=== PATIENT | female | born 1990 | race African-American/Black ===

== ENCOUNTER 2017-05-11 15:12 | Inpatient (IN) | payer MEDICAID ==
[2017-05-11] VITALS (25 sets, daily range): BP systolic 122–183; BP diastolic 64–123
[~2017-05-11] VITALS: Ht 170.2 cm; Wt 93.0 kg
[2017-05-11] MEDS ORDERED: MAGNESIUM 2 G PREMIX 50 ML IV ONE ×5 (15:15→17:45)
[2017-05-11] MEDS ORDERED: LORAZEPAM 2MG/ML CPJ ONE (15:24)
[2017-05-11] MEDS ORDERED: LABETALOL 5MG/ML SYR 20 MG/4 ML SYRINGE IV ONE ×3 (15:30→17:45)
[2017-05-11] MEDS ORDERED: LORAZEPAM 2MG/ML CPJ IV ONE (15:30)
[2017-05-11] MEDS ORDERED: LABETALOL HCL 20MG/4ML CARPUJECT IV ONE (15:30)
[2017-05-11 15:52] LABS: CHLORIDE 106 mEq/L (98-107)
[2017-05-11 15:56] LABS: INR 0.9; PROTHROMBIN TIME 9.1 sec (9.4-11.6)
[2017-05-11 16:01] LABS: CARBON DIOXIDE 17 mEq/L (21-32)
[2017-05-11 16:09] LABS: BASOPHILS % 0.4 % (0.0-2.0); EOSINOPHILS % 0.2 % (0.0-5.0); HEMATOCRIT. 47.4 % (36.0-48.0); HEMOGLOBIN. 15.8 g/dL (12.0-16.0); LYMPHOCYTES % 43.4 % (20.0-50.0); MEAN CORPUSCULAR VOLUME 92.9 fL (81.0-99.0); MEAN PLATELET VOLUME 11.9 fl (7.4-10.4); MONOCYTES % 7.1 % (2.0-8.0); NEUTROPHILS % 48.9 % (40.0-76.0); PLATELET 194 x1000/uL (130-400); RED CELL DISTRIBUTION WIDTH 14.1 % (11.6-14.6)
[2017-05-11 16:47] LABS: BG CARBOXYHEMOGLOBIN 0.8 % (0.5-1.5); BG DEOXYHEMOGLOBIN 18.5 % (0.0-5.0); BG FRACTION INSPIRED OXYGEN 21; BG HCO3 ACT 20.7 mmol/L (22.0-26.0); BG METHEMOGLOBIN 0.3 % (0.0-1.5); BG OXYGEN SATURATION 81.3 % (92.0-98.5); BG OXYHEMOGLOBIN 80.4 % (94.0-97.0); BG PCO2 37.2 mmHg (35.0-45.0); BG PH 7.364 (7.350-7.450); BG SAMPLE SITE LEFT RADIAL; BG VENT MODE ROOM AIR
[2017-05-11 17:25] LABS: CLARITY URINE CLEAR (CLEAR); COLOR URINE YELLOW (YELLOW); KETONES URINE NEGATIVE (NEGATIVE); LEUKOCYTE ESTERASE URINE NEGATIVE (NEGATIVE); NITRITE URINE NEGATIVE (NEGATIVE); OCCULT BLOOD URINE 2+ (NEGATIVE); PROTEIN URINE 4+ (NEGATIVE); UROBILINOGEN URINE 0.2 E.U./dL (0.2-1.0)
[2017-05-11] MEDS ORDERED: ONDANSETRON HCL 4MG/2ML VIAL IV PRN ×2 (18:30→19:00)
[2017-05-11] MEDS ORDERED: MEPERIDINE HCL/PF 25MG/ML CPJ IV PRN (18:30)
[2017-05-11] MEDS ORDERED: LABETALOL HCL 20MG/4ML CARPUJECT IV PRN (18:30)
[2017-05-11] MEDS ORDERED: MIDAZOLAM HCL 2 MG/2 ML VIAL ONE (18:39)
[2017-05-11] MEDS ORDERED: FENTANYL CITRATE/PF 50MCG/ML 2ML VIAL ONE (18:39)
[2017-05-11] MEDS ORDERED: HYDROMORPHONE HCL/PF 2MG/ML CPJ IM PRN (19:00)
[2017-05-11] MEDS ORDERED: HYDROCODONE/ACETAMINOPHEN 5/325MG TABLET PO PRN (19:00)
[2017-05-11] MEDS ORDERED: RHO(D) IMMUNE GLOBULIN 300 MCG/SYR IM PRN (19:00)
[2017-05-11] MEDS ORDERED: BISACODYL 10MG SUPP PR PRN (19:00)
[2017-05-11] MEDS ORDERED: IBUPROFEN 400MG TABLET PO PRN (19:00)
[2017-05-11] MEDS ORDERED: LORAZEPAM 2MG/ML CPJ IV PRN (19:45)
[2017-05-11] MEDS: LABETALOL 5MG/ML SYR 20 MG/4 ML SYRINGE IV PRN ×3 (19:58→22:41)
[2017-05-11 20:02] LABS: CARBON DIOXIDE 25 mEq/L (21-32); CHLORIDE 105 mEq/L (98-107)
[2017-05-11] MEDS: HYDROMORPHONE HCL/PF 2MG/ML CPJ IV PRN ×3 (20:08→20:46)
[2017-05-11] MEDS ORDERED: PROPOFOL 200MG/20ML VIAL IV ONE (20:09)
[2017-05-11 20:35] LABS: BG BASE EXCESS -7.6 mmol/L (-2.0-2.0); BG DEOXYHEMOGLOBIN 4.6 % (0.0-5.0); BG FRACTION INSPIRED OXYGEN 100; BG METHEMOGLOBIN 0.3 % (0.0-1.5); BG OXYGEN SATURATION 95.3 % (92.0-98.5); BG OXYHEMOGLOBIN 94.1 % (94.0-97.0); BG PCO2 32.6 mmHg (35.0-45.0); BG PH 7.336 (7.350-7.450); BG PO2 90.1 mmHg (75.0-100.0); BG SAMPLE SITE RIGHT RADIAL; BG TIDAL VOLUME(mL) 500 mL; BG TOTAL HEMOGLOBIN 14.6 g/dL (12.0-18.0); BG VENT MODE VENT - A/C; BG VENT RATE 12 set
[2017-05-11] MEDS: DEXT 5%/LR + PITOCIN 20UNITS/L 1,000 ML IV SCH (20:45)
[2017-05-11] MEDS ORDERED: MAGNESIUM 20 G PREMIX (L & D) 500 ML IV SCH (21:00)
[2017-05-11] MEDS ORDERED: PROPOFOL 10MG/ML 100ML 100 ML IV PRN (21:15)
[2017-05-11] MEDS: LABETALOL HCL 200MG TABLET PO SCH (22:00)
[2017-05-12] VITALS (93 sets, daily range): BP systolic 120–180; BP diastolic 62–139
[2017-05-12] MEDS: SODIUM CHLORIDE 0.9% 1,000 ML IV SCH ×4 (00:39→20:14)
[2017-05-12] MEDS: LABETALOL 5MG/ML SYR 20 MG/4 ML SYRINGE IV PRN ×3 (00:39→06:50)
[2017-05-12 03:46] LABS: BG BASE EXCESS -5.9 mmol/L (-2.0-2.0); BG DEOXYHEMOGLOBIN 8.1 % (0.0-5.0); BG FRACTION INSPIRED OXYGEN 50; BG HCO3 ACT 19.6 mmol/L (22.0-26.0); BG METHEMOGLOBIN 0.3 % (0.0-1.5); BG OXYGEN SATURATION 91.9 % (92.0-98.5); BG OXYHEMOGLOBIN 91.6 % (94.0-97.0); BG PCO2 38.8 mmHg (35.0-45.0); BG PH 7.322 (7.350-7.450); BG PO2 67.9 mmHg (75.0-100.0); BG SAMPLE SITE RIGHT RADIAL; BG TOTAL HEMOGLOBIN 14.8 g/dL (12.0-18.0); BG VENT MODE T-TUBE
[2017-05-12] MEDS: DEXT 5%/LR + PITOCIN 20UNITS/L 1,000 ML IV SCH ×2 (04:59→11:24)
[2017-05-12] MEDS: LABETALOL HCL 200MG TABLET PO SCH ×3 (05:00→20:13)
[2017-05-12 05:28] LABS: HEMATOCRIT. 42.5 % (36.0-48.0); HEMOGLOBIN. 14.1 g/dL (12.0-16.0); MEAN CORPUSCULAR HEMOGLOBIN 30.7 pg (28.0-32.0); MEAN CORPUSCULAR VOLUME 92.2 fL (81.0-99.0); MEAN PLATELET VOLUME 11.6 fl (7.4-10.4); PLATELET 172 x1000/uL (130-400); RED CELL DISTRIBUTION WIDTH 13.9 % (11.6-14.6)
[2017-05-12] MEDS ORDERED: FUROSEMIDE 40MG/4ML VIAL IVP NR (08:00)
[2017-05-12] MEDS: HYDRALAZINE 20MG/ML VIAL IV PRN ×2 (08:07→14:05)
[2017-05-12] MEDS: ENALAPRIL 2.5MG/2ML VIAL 2ML IV PRN ×2 (08:52→17:35)
[2017-05-12] MEDS: MORPHINE SULFATE 2 MG/ML CPJ (NOT FOR IM USE) IV PRN ×2 (09:37→16:41)
[2017-05-12 10:51] LABS: PLATELET ESTIMATE NORMAL
[2017-05-12 14:35] LABS: CARBON DIOXIDE 22 mEq/L (21-32); CHLORIDE 103 mEq/L (98-107)
[2017-05-12] MEDS ORDERED: SIMETHICONE 80MG TABLET CHEW PO SCH (23:45)
[2017-05-13] VITALS (84 sets, daily range): BP systolic 113–178; BP diastolic 60–115
[2017-05-13] MEDS: NIFEDIPINE 10MG CAPSULE PO SCH ×4 (00:27→17:54)
[2017-05-13] MEDS: LABETALOL 5MG/ML SYR 20 MG/4 ML SYRINGE IV PRN ×3 (00:28→21:52)
[2017-05-13] MEDS: MORPHINE SULFATE 2 MG/ML CPJ (NOT FOR IM USE) IV PRN (03:00)
[2017-05-13] MEDS: SODIUM CHLORIDE 0.9% 1,000 ML IV SCH ×4 (03:57→23:59)
[2017-05-13] MEDS: LABETALOL HCL 200MG TABLET PO SCH ×3 (06:13→21:07)
[2017-05-13 06:29] LABS: CARBON DIOXIDE 25 mEq/L (21-32); CHLORIDE 106 mEq/L (98-107)
[2017-05-13] MEDS: IBUPROFEN 800MG TABLET PO PRN ×2 (08:21→17:59)
[2017-05-13] MEDS: DOCUSATE SODIUM 100MG CAPSULE PO SCH ×2 (14:23→17:00)
[2017-05-13] MEDS: SIMETHICONE 80MG TABLET CHEW PO PRN (14:23)
[2017-05-13 17:12] LABS: BASOPHILS % 0.4 % (0.0-2.0); EOSINOPHILS % 0.7 % (0.0-5.0); HEMATOCRIT. 36.5 % (36.0-48.0); HEMOGLOBIN. 12.3 g/dL (12.0-16.0); LYMPHOCYTES % 15.7 % (20.0-50.0); MEAN CORPUSCULAR HEMOGLOBIN 30.5 pg (28.0-32.0); MEAN CORPUSCULAR VOLUME 90.8 fL (81.0-99.0); MEAN PLATELET VOLUME 10.1 fl (7.4-10.4); NEUTROPHILS % 78.2 % (40.0-76.0); PLATELET 179 x1000/uL (130-400); RED BLOOD CELL COUNT 4.02 mill/uL (4.2-5.4); RED CELL DISTRIBUTION WIDTH 14.1 % (11.6-14.6)
[2017-05-14] VITALS (53 sets, daily range): BP systolic 102–153; BP diastolic 62–103
[2017-05-14] MEDS: NIFEDIPINE 10MG CAPSULE PO SCH ×4 (00:01→17:54)
[2017-05-14 05:29] LABS: BASOPHILS % 0.4 % (0.0-2.0); EOSINOPHILS % 0.9 % (0.0-5.0); HEMATOCRIT. 34.2 % (36.0-48.0); HEMOGLOBIN. 11.4 g/dL (12.0-16.0); LYMPHOCYTES % 24.8 % (20.0-50.0); MEAN CORPUSCULAR HEMOGLOBIN 30.7 pg (28.0-32.0); MEAN CORPUSCULAR VOLUME 91.9 fL (81.0-99.0); MEAN PLATELET VOLUME 10.9 fl (7.4-10.4); NEUTROPHILS % 67.9 % (40.0-76.0); PLATELET 181 x1000/uL (130-400); RED BLOOD CELL COUNT 3.72 mill/uL (4.2-5.4); RED CELL DISTRIBUTION WIDTH 13.9 % (11.6-14.6)
[2017-05-14] MEDS: SODIUM CHLORIDE 0.9% 1,000 ML IV SCH (05:53)
[2017-05-14] MEDS: LABETALOL HCL 200MG TABLET PO SCH ×3 (05:56→22:07)
[2017-05-14 06:10] LABS: CARBON DIOXIDE 28 mEq/L (21-32); CHLORIDE 106 mEq/L (98-107)
[2017-05-14] MEDS: DOCUSATE SODIUM 100MG CAPSULE PO SCH ×2 (09:03→21:46)
[2017-05-14] MEDS ORDERED: LACTATED RINGERS 500 ML IV ONE (11:30)
[2017-05-14] MEDS: IBUPROFEN 800MG TABLET PO PRN (16:24)
[2017-05-14] MEDS ORDERED: DOCUSATE SODIUM 100MG CAPSULE PO PRN (17:00)
[2017-05-14] MEDS: SIMETHICONE 80MG TABLET CHEW PO PRN (21:46)
[2017-05-15] VITALS: BP 151/96
[2017-05-15] MEDS: NIFEDIPINE 10MG CAPSULE PO SCH ×4 (00:03→21:51)
[2017-05-15 06:00] VITALS: BP 133/76
[2017-05-15] MEDS: LABETALOL HCL 200MG TABLET PO SCH ×2 (06:02→14:32)
[2017-05-15 07:16] LABS: BASOPHILS % 0.3 % (0.0-2.0); EOSINOPHILS % 0.9 % (0.0-5.0); HEMATOCRIT. 38.3 % (36.0-48.0); LYMPHOCYTES % 24.3 % (20.0-50.0); MEAN CORPUSCULAR HEMOGLOBIN 31.2 pg (28.0-32.0); MEAN CORPUSCULAR VOLUME 91.8 fL (81.0-99.0); MEAN PLATELET VOLUME 10.3 fl (7.4-10.4); MONOCYTES % 5.9 % (2.0-8.0); NEUTROPHILS % 68.6 % (40.0-76.0); PLATELET 207 x1000/uL (130-400); RED BLOOD CELL COUNT 4.17 mill/uL (4.2-5.4); RED CELL DISTRIBUTION WIDTH 14.3 % (11.6-14.6)
[2017-05-15 08:00] LABS: CHLORIDE 102 mEq/L (98-107)
[2017-05-15 08:50] LABS: CARBON DIOXIDE 27 mEq/L (21-32)
[2017-05-15 13:30] VITALS: BP 142/99
[2017-05-15 14:32] VITALS: BP 119/70
[2017-05-15 16:00] VITALS: BP 123/85
[2017-05-15] MEDS ORDERED: MAGNESIUM 2 G PREMIX 50 ML IV NR (18:30)
[2017-05-15 20:25] VITALS: BP 135/95
[2017-05-15 20:33] LABS: *AMPHETAMINES SCREEN URINE NEGATIVE (NEGATIVE); *BARBITURATES SCREEN URINE NEGATIVE (NEGATIVE); *BENZODIAZEPINES SCREEN URINE NEGATIVE (NEGATIVE); *COCAINE SCREEN URINE NEGATIVE (NEGATIVE); CANNABINOID URINE SCREEN NEGATIVE (NEGATIVE); METHADONE URINE SCREEN NEGATIVE (NEGATIVE); OPIATES URINE SCREEN NEGATIVE (NEGATIVE); PHENCYCLIDINE URINE SCREEN NEGATIVE (NEGATIVE)
[2017-05-15] MEDS: POTASSIUM CHLORIDE 20MEQ TABLET SR PO SCH (21:30)
[2017-05-15] MEDS: IBUPROFEN 800MG TABLET PO PRN (22:34)
[2017-05-16] VITALS: BP 134/85
[2017-05-16] MEDS: NIFEDIPINE 10MG CAPSULE PO SCH (04:00)
[2017-05-16 07:25] LABS: BASOPHILS % 0.3 % (0.0-2.0); EOSINOPHILS % 1.5 % (0.0-5.0); HEMATOCRIT. 37.2 % (36.0-48.0); HEMOGLOBIN. 12.8 g/dL (12.0-16.0); LYMPHOCYTES % 30.5 % (20.0-50.0); MEAN CORPUSCULAR HEMOGLOBIN 31.5 pg (28.0-32.0); MEAN CORPUSCULAR VOLUME 91.8 fL (81.0-99.0); MONOCYTES % 8.2 % (2.0-8.0); NEUTROPHILS % 59.5 % (40.0-76.0); PLATELET 220 x1000/uL (130-400); RED BLOOD CELL COUNT 4.05 mill/uL (4.2-5.4); RED CELL DISTRIBUTION WIDTH 14.1 % (11.6-14.6)
[2017-05-16 07:53] LABS: CARBON DIOXIDE 28 mEq/L (21-32); CHLORIDE 103 mEq/L (98-107)
[2017-05-16 08:20] VITALS: BP 131/86
[2017-05-16] MEDS: LABETALOL HCL 200MG TABLET PO SCH ×3 (08:22→16:12)
[2017-05-16] MEDS: POTASSIUM CHLORIDE 20MEQ TABLET SR PO SCH (09:39)
[2017-05-16 16:05] VITALS: BP 141/98
[2017-05-16] MEDS: SIMETHICONE 80MG TABLET CHEW PO PRN (16:12)
== END 2017-05-16 12:00 | disposition home or self-care (01) | DRG 540 ==
LOC: ER 15:21 → OBSVTOIN 18:00 → L&D 18:00 → CANBEDREQ 18:20 → L&D 18:23 → UNDOADMOB 18:23 → MICUSO 19:06 → 7EST PP/OB 05-14 14:26
PROVIDERS: ADMIT Obstetrics & Gynecology; ATTEND Obstetrics & Gynecology
PROC: 10D00Z1 Extraction of Products of Conception, Low, Open Approach (ICD-10-PCS; principal; 2017-05-11)
DX: O15.1 Eclampsia complicating labor (principal); J96.00 Acute respiratory failure, unspecified whether with hypoxia or hypercapnia; O60.14X0 Preterm labor third trimester with preterm delivery third trimester, not applicable or unspecified; O99.354 Diseases of the nervous system complicating childbirth; O24.429 Gestational diabetes mellitus in childbirth, unspecified control; O34.219 Maternal care for unspecified type scar from previous cesarean delivery; D25.9 Leiomyoma of uterus, unspecified; O13.4 Gestational [pregnancy-induced] hypertension without significant proteinuria, complicating childbirth; O99.52 Diseases of the respiratory system complicating childbirth; O99.284 Endocrine, nutritional and metabolic diseases complicating childbirth; O16.4 Unspecified maternal hypertension, complicating childbirth; O34.13 Maternal care for benign tumor of corpus uteri, third trimester; Z82.5 Family history of asthma and other chronic lower respiratory diseases; Z82.49 Family history of ischemic heart disease and other diseases of the circulatory system; Z37.0 Single live birth; Z83.3 Family history of diabetes mellitus; Z3A.36 36 weeks gestation of pregnancy; Z79.82 Long term (current) use of aspirin; R93.8 Abnormal findings on diagnostic imaging of other specified body structures
CPT/HCPCS: 36415; 36600; 70450; 70551; 71045; 76805; 80048; 80053; 80305; 80359; 81001; 82375; 82805; 83735; 84478; 85025; 85610; 86592; 86703; 86762; 86850; 86900; 87340; 88307; 92610; 93306; 94003; 94640; 94664; 96361; 96365; 96367; 96375; 97162; 97166; 99291; J0360; J1170; J1940; J2060; J2250; J2270; J2405; J2590; J2704; J3010; J3475; J3490; J7030; J7120; A4315

== ENCOUNTER 2018-02-23 19:15 | Emergency (ER) | payer MEDICAID ==
[~2018-02-23] VITALS: Ht 160 cm; Wt 78.0 kg
[2018-02-23 19:49] VITALS: BP 136/91
== END 2018-02-24 00:56 | disposition left against medical advice (07) ==
LOC: ER 19:15
DX: Z53.21 Procedure and treatment not carried out due to patient leaving prior to being seen by health care provider (principal); R94.31 Abnormal electrocardiogram [ECG] [EKG]
CPT/HCPCS: 93005

== ENCOUNTER 2018-02-28 23:25 | Emergency (ER) | payer MEDICAID ==
[~2018-02-28] VITALS: Ht 160 cm; Wt 78.0 kg
[2018-03-01 00:50] LABS: CLARITY URINE CLEAR (CLEAR); COLOR URINE YELLOW (YELLOW)
[2018-03-01 00:52] LABS: KETONES URINE NEGATIVE (NEGATIVE); LEUKOCYTE ESTERASE URINE NEGATIVE (NEGATIVE); NITRITE URINE NEGATIVE (NEGATIVE); OCCULT BLOOD URINE 1+ (NEGATIVE); PROTEIN URINE NEGATIVE (NEGATIVE); UROBILINOGEN URINE 0.2 E.U./dL (0.2-1.0)
[2018-03-01] MEDS ORDERED: MAGNESIUM/ALUMINUM HYDROXIDE/SIMETHICONE 30ML UDC PO STA (01:15)
[2018-03-01] MEDS ORDERED: VISCOUS LIDOCAINE 2% 15 ML UDC PO STA (01:15)
[2018-03-01] MEDS ORDERED: DICYCLOMINE 10 MG/5 ML ORAL SYR PO STA (01:15)
[2018-03-01 02:30] LABS: CHLORIDE 105 mEq/L (98-107)
[2018-03-01 03:02] LABS: BASOPHILS % 0.4 % (0.0-2.0); EOSINOPHILS % 0.5 % (0.0-5.0); HEMATOCRIT. 36.2 % (36.0-48.0); HEMOGLOBIN. 12.3 g/dL (12.0-16.0); LYMPHOCYTES % 37.8 % (20.0-50.0); MEAN CORPUSCULAR HEMOGLOBIN 31.7 pg (28.0-32.0); MEAN CORPUSCULAR VOLUME 93.2 fL (81.0-99.0); MONOCYTES % 6.4 % (2.0-8.0); NEUTROPHILS % 54.9 % (40.0-76.0); PLATELET 219 x1000/uL (130-400); RED BLOOD CELL COUNT 3.88 mill/uL (4.2-5.4)
[2018-03-01 05:05] VITALS: BP 131/78
== END 2018-03-01 05:07 | disposition home or self-care (01) ==
LOC: ER 23:25
DX: R07.2 Precordial pain (principal); R53.1 Weakness; F12.10 Cannabis abuse, uncomplicated; Z98.890 Other specified postprocedural states
CPT/HCPCS: 36415; 71045; 81025; 84443; 84484; 93005; 99285

== ENCOUNTER 2018-08-14 22:26 | Emergency (ER) | payer MEDICAID ==
[~2018-08-14] VITALS: Ht 160 cm; Wt 80.0 kg
[2018-08-15] MEDS ORDERED: ACETAMINOPHEN 325MG TABLET PO ONE (00:15)
[2018-08-15 01:47] VITALS: BP 122/89
== END 2018-08-15 01:50 | disposition home or self-care (01) ==
LOC: ER 22:26
DX: R07.89 Other chest pain (principal); R05 Cough; F12.10 Cannabis abuse, uncomplicated; Z98.890 Other specified postprocedural states
CPT/HCPCS: 81025; 93005; 99283

== ENCOUNTER 2018-09-05 21:41 | Emergency (ER) | payer MEDICAID ==
[~2018-09-05] VITALS: Ht 160 cm; Wt 80.0 kg
[2018-09-05] MEDS ORDERED: IBUPROFEN 600MG TABLET PO ONE (23:00)
[2018-09-05] MEDS ORDERED: ASPIRIN 81MG TABLET PO ONE (23:15)
[2018-09-05 23:36] LABS: BASOPHILS % 0.8 % (0.0-2.0); EOSINOPHILS % 0.9 % (0.0-5.0); HEMATOCRIT. 38.5 % (36.0-48.0); LYMPHOCYTES % 43.8 % (20.0-50.0); MEAN CORPUSCULAR HEMOGLOBIN 31.1 pg (28.0-32.0); MEAN CORPUSCULAR VOLUME 91.9 fL (81.0-99.0); MEAN PLATELET VOLUME 9.5 fl (7.4-10.4); MONOCYTES % 6.4 % (2.0-8.0); NEUTROPHILS % 48.1 % (40.0-76.0); PLATELET 197 x1000/uL (130-400); RED BLOOD CELL COUNT 4.19 mill/uL (4.2-5.4); RED CELL DISTRIBUTION WIDTH 13.4 % (11.6-14.6)
[2018-09-05] MEDS: NITROGLYCERIN 0.4MG TABLET SL SL PRN (23:38)
[2018-09-05 23:41] LABS: CHLORIDE 105 mEq/L (98-107)
[2018-09-05 23:43] LABS: INR 0.9; PARTIAL THROMBOPLASTIN TIME 28.1 sec (23.4-31.0); PROTHROMBIN TIME 9.4 sec (9.6-11.0)
[2018-09-05 23:45] LABS: HCG SCREEN NEGATIVE
[2018-09-06] MEDS: NITROGLYCERIN 0.4MG TABLET SL SL PRN (00:41)
[2018-09-06 06:15] VITALS: BP 114/69
== END 2018-09-06 06:15 | disposition home or self-care (01) ==
LOC: ER 21:41
DX: R07.89 Other chest pain (principal); F12.90 Cannabis use, unspecified, uncomplicated; R03.0 Elevated blood-pressure reading, without diagnosis of hypertension; Z87.891 Personal history of nicotine dependence
CPT/HCPCS: 36415; 71045; 83880; 84484; 84703; 93005; 99284

== ENCOUNTER 2019-06-26 19:01 | Emergency (ER) | payer MEDICAID ==
[~2019-06-26] VITALS: Ht 160 cm; Wt 90.0 kg
[2019-06-26 19:05] VITALS: BP 146/96
[2019-06-26] MEDS ORDERED: MAGNESIUM/ALUMINUM HYDROXIDE/SIMETHICONE 30ML UDC PO ONE (19:15)
[2019-06-26] MEDS ORDERED: VISCOUS LIDOCAINE 2% 15 ML UDC PO ONE (19:15)
== END 2019-06-26 20:17 | disposition left against medical advice (07) ==
LOC: ER 19:01
DX: R07.89 Other chest pain (principal)
CPT/HCPCS: 93005; 99284